=== PATIENT | male | born 1995 | race African-American/Black ===

== ENCOUNTER 2017-07-08 16:00 | Emergency (ER) | payer MEDICAID ==
[~2017-07-08] VITALS: Ht 180.3 cm; Wt 122.0 kg
[~2017-07-08 16:00] MED LIST: IOHEXOL-350 100 ML BOTTLE ONE; SODIUM CHLORIDE 0.9% 10ML VIAL ONE
[2017-07-08] MEDS ORDERED: KETOROLAC 60MG/2ML VIAL IM ONE (21:00)
[2017-07-08] MEDS ORDERED: SODIUM CHLORIDE 0.9% 1,000 ML IV ONE (22:02)
[2017-07-08] MEDS ORDERED: MORPHINE SULFATE 4 MG/ML CPJ (NOT FOR IM USE) IV ONE (22:15)
[2017-07-08] MEDS ORDERED: ONDANSETRON HCL 4MG/2ML VIAL IV ONE (22:15)
[2017-07-08 22:53] LABS: BASOPHILS % 0.8 % (0.0-2.0); EOSINOPHILS % 3.8 % (0.0-5.0); HEMATOCRIT. 44.2 % (42.0-52.0); HEMOGLOBIN. 14.8 g/dL (14.0-18.0); LYMPHOCYTES % 24.1 % (20.0-50.0); MEAN CORPUSCULAR HEMOGLOBIN 29.2 pg (28.0-32.0); MEAN CORPUSCULAR VOLUME 87.1 fL (80.0-94.0); MONOCYTES % 12.9 % (2.0-8.0); NEUTROPHILS % 58.4 % (40.0-76.0); PLATELET 354 x1000/uL (130-400); RED BLOOD CELL COUNT 5.07 mill/uL (4.7-6.1); RED CELL DISTRIBUTION WIDTH 13.8 % (11.6-14.6)
[2017-07-08 23:00] LABS: INR 1.1; PROTHROMBIN TIME 11.4 sec
[2017-07-08 23:02] LABS: CHLORIDE 104 mEq/L (98-107)
[2017-07-08 23:06] LABS: CARBON DIOXIDE 30 mEq/L (21-32)
[2017-07-09 02:00] VITALS: BP 123/59
== END 2017-07-09 03:15 | disposition home or self-care (01) ==
LOC: ER 19:55
DX: M25.561 Pain in right knee (principal); Y93.63 Activity, rugby; Y92.89 Other specified places as the place of occurrence of the external cause; J45.909 Unspecified asthma, uncomplicated; F12.10 Cannabis abuse, uncomplicated; Z98.890 Other specified postprocedural states
CPT/HCPCS: 29505; 36415; 72191; 73562; 73706; 80053; 85025; 85610; 96361; 96372; 96374; 96375; 99285; A4216; J1885; J2270; J2405; J7030; Q9967; Z7610

== ENCOUNTER 2017-11-01 10:59 | Emergency (ER) | payer MEDICAID ==
[~2017-11-01] VITALS: Ht 180.3 cm; Wt 125.0 kg
[2017-11-01 11:30] VITALS: BP 126/85
== END 2017-11-01 12:25 | disposition home or self-care (01) ==
LOC: ER 11:36
DX: B34.9 Viral infection, unspecified (principal); J45.909 Unspecified asthma, uncomplicated; F12.10 Cannabis abuse, uncomplicated
CPT/HCPCS: 71010; 87070; 87430; 99285